=== PATIENT | female | born 1960 | race Caucasian/White ===

== ENCOUNTER 2019-07-22 06:54 | Day surgery (SDC) | payer OTHER, MEDICARE, MEDICAID ==
[~2019-07-22 06:54] MED LIST: CEFAZOLIN SODIUM 2 GM in DEXTROSE 5%-WATER 100 ML IV PRN
[2019-07-22 08:32] LABS: HEMATOCRIT 43.5 % (36.0-47.0); HEMOGLOBIN 14.8 g/dL (12.0-15.5); MEAN CORPUSCULAR HEMOGLOBIN 31.3 pg (27.0-33.4); MEAN CORPUSCULAR HGB CONC 34.1 g/dL (32.0-36.0); MEAN CORPUSCULAR VOLUME 92 fl (80-97); PLATELET COUNT 384 10^3/uL (150-450); RED BLOOD COUNT 4.74 10^6/uL (3.72-5.28); RED CELL DISTRIBUTION WIDTH 14.2 % (11.5-14.0); WHITE BLOOD COUNT 12.2 10^3/uL (4.0-10.5)
--- NOTE | 2019-07-22 08:51 | RADIOLOGY REPORT (SQ) ---
EXAM DESCRIPTION: CHEST SINGLE VIEW COMPLETED DATE/TIME: 07/22/2019 8:15 am REASON FOR STUDY: preop COMPARISON: None. EXAM PARAMETERS: NUMBER OF VIEWS: One view. TECHNIQUE: An AP view of the chest was obtained. RADIATION DOSE: NA LIMITATIONS: None. FINDINGS: LUNGS AND PLEURA: No consolidation, pleural effusion or pneumothorax. MEDIASTINUM AND HILAR STRUCTURES: No mediastinal or hilar contour abnormality. HEART AND VASCULAR STRUCTURES: The cardiac silhouette and pulmonary vasculature are within normal milner its. BONES: Left shoulder arthroplasty hardware. HARDWARE: None in the chest. OTHER: No other finding. IMPRESSION: No acute cardiopulmonary process. TECHNICAL DOCUMENTATION: JOB ID: [id number] [email or web address]- All Rights Reserved Reading location - IP/workstation name: [email or web address]
[2019-07-22] MEDS ORDERED: MIDAZOLAM 2 MG/2 ML INJ ONE (08:53)
[2019-07-22 09:03] LABS: ANION GAP 7 (5-19); BLOOD UREA NITROGEN 7 mg/dL (7-20); CALCIUM 9.2 mg/dL (8.4-10.2); CARBON DIOXIDE 24 mmol/L (22-30); CHLORIDE 107 mmol/L (98-107); GLUCOSE 90 mg/dL (75-110); POTASSIUM 4.5 mmol/L (3.6-5.0)
[2019-07-22] MEDS ORDERED: PROPOFOL INJ 200 MG/20 ML VIAL IV ONE (09:12)
[2019-07-22] MEDS ORDERED: BUPIVACAINE INJ/PF LIPOSOME/PF 266 MG/20 ML SDV ONE (09:13)
[2019-07-22] MEDS ORDERED: PROMETHAZINE HCL INJ 25 MG/1 ML VIAL IV PRN (09:40)
[2019-07-22] MEDS ORDERED: DIPHENHYDRAMINE HCL 50 MG/ML VIAL IV PRN (09:40)
[2019-07-22] MEDS ORDERED: OXYCODONE-ACETAMINOPHEN 5-325 MG TABLET PO PRN ×3 (09:40→14:20)
[2019-07-22] MEDS ORDERED: MORPHINE SULFATE 10 MG/ML INJ IV PRN (09:40)
[2019-07-22] MEDS ORDERED: MEPERIDINE HCL/PF INJ 25 MG/1 ML DISP.SYRIN IV PRN (09:40)
[2019-07-22] MEDS ORDERED: FENTANYL CITRATE INJ/PF 100 MCG/2 ML AMPUL IV PRN (09:40)
[2019-07-22] MEDS ORDERED: BUPIVACAINE INJ/PF LIPOSOME/PF 266 MG/20 ML SDV INJ ONE (09:44)
--- NOTE | 2019-07-22 10:41 | Discharge Summary ---
Discharge Summary (SDC) - Discharge Final Diagnosis: Posttraumatic right ankle arthritis Date of Surgery: 07/22/19 Discharge Date: 07/22/19 Condition: Good Treatment or Instructions: Touchdown weightbearing restriction on the right lower extremity. Leave the splint in place until you return to the office. Please do not immerse this in water. Discharge Diet: Regular Respiratory Treatments at Home: Deep Breathing/Coughing Discharge Activity: Balance Activity w/Rest, No Driving, No tub bath Home Care Assistance: None Needed Report the Following to Your Physician Immediately: Shortness of Breath, Fever over 101 Degrees, Drainage-Foul Smelling
--- NOTE | 2019-07-22 10:44 | Operative Report ---
Operative Report DATE OF SURGERY: 07/22/19 PREOPERATIVE DIAGNOSIS: Posttraumatic right ankle arthritis OPERATION: Right ankle arthrodesis. Hardware removal SURGEON: JATINDER THOMAS ANESTHESIA: Spinal TISSUE REMOVED OR ALTERED: Cultures to microbiology. Hardware to CSS ESTIMATED BLOOD LOSS: Minimal PROCEDURE: With the patient supine and operative table the right lower extremities prepped and draped sterile fashion. Limb is elevated for exsanguination tourniquet inflated to 250 torr. Patient has had previous medial and lateral incisions and these were avoided. A new incision made anteriorly over the anterior tibial and then. Further passage through the tendon sheath to avoid the neurovascular structures ensues. The underlying tibiotalar joint and dorsal aspect of the talus is exposed. There are 4 stainless steel screws in the joint that are removed through the joint and an additional screw in the neck of the talus which was removed uneventfully. The surface of the talus was resected using an oscillating saw. Likewise the articular surface of the tibia is removed using an oscillating saw. This is done in a fashion to avoid the existing tibial hardware and avoid its removal because of unnecessary soft tissue dissection. The tibiotalar joint is reduced and held in place with 3 Steinmann pins. Its position is assessed clinically as slightly valgus hindfoot and neutral plantar and dorsiflexion. This was confirmed radiographically in 2 planes. Subsequent Arthrex anterior tibiotalar fusion plate is placed and secured with 3 screws into the dorsum of the talus. Is then compressed onto the tibia and the remainder of the screw holes are filled with locking screws. The ultimate result is assessed fluoroscopically and felt to be adequate. Again it demonstrates a slightly valgus hindfoot with a neutral plantar and dorsiflexion axis. The tourniquet is deflated. Hemostasis obtained with electrocautery. The wound is irrigated with bulb lavage. Ventura closure is noted Vicryl followed by nylon. A sterile compressive dressing followed by posterior plaster splint are applied. The patient is returned to PACU in satisfactory condition.
[2019-07-22 15:31] VITALS: BP 145/95
--- NOTE | 2019-07-22 16:17 | RADIOLOGY REPORT (SQ) ---
EXAM DESCRIPTION: ANKLE RIGHT AP/LATERAL; NO CHG FLUORO COMPLETED DATE/TIME: 07/22/2019 4:03 pm; 07/22/2019 4:01 pm REASON FOR STUDY: ORIF/FUSION RIGHT ANKLE ASST WITH FLUORO IN OR M25.571 PAIN IN RIGHT ANKLE AND KIESHA INTS OF RIGHT FOOT COMPARISON: 06/29/2019. FLUOROSCOPY TIME: 0.4 minutes. 3 images saved to PACS. TECHNIQUE: Intra-operative images acquired during surgical procedure to evaluate progress. NUMBER OF IMAGES: 3 images. LIMITATIONS: None. FINDINGS: Images of the ankle acquired during the procedure. IMPRESSION: IMAGE(S) OBTAINED DURING PROCEDURE. COMMENT: Quality ID [id number]: Final reports for procedures using fluoroscopy that document radiation exp osure indices, or exposure time and number of fluorographic images (if radiation exposure indices are not available) Please consult full operative report of the attending physician for description of the procedure. TECHNICAL DOCUMENTATION: JOB ID: [id number] [employer]- All Rights Reserved Reading location - IP/workstation name: [email or web address]
--- NOTE | 2019-07-22 16:17 | RADIOLOGY REPORT (SQ) ---
EXAM DESCRIPTION: ANKLE RIGHT AP/LATERAL; NO CHG FLUORO COMPLETED DATE/TIME: 07/22/2019 4:03 pm; 07/22/2019 4:01 pm REASON FOR STUDY: ORIF/FUSION RIGHT ANKLE ASST WITH FLUORO IN OR M25.571 PAIN IN RIGHT ANKLE AND KIESHA INTS OF RIGHT FOOT COMPARISON: 06/29/2019. FLUOROSCOPY TIME: 0.4 minutes. 3 images saved to PACS. TECHNIQUE: Intra-operative images acquired during surgical procedure to evaluate progress. NUMBER OF IMAGES: 3 images. LIMITATIONS: None. FINDINGS: Images of the ankle acquired during the procedure. IMPRESSION: IMAGE(S) OBTAINED DURING PROCEDURE. COMMENT: Quality ID [id number]: Final reports for procedures using fluoroscopy that document radiation exp osure indices, or exposure time and number of fluorographic images (if radiation exposure indices are not available) Please consult full operative report of the attending physician for description of the procedure. TECHNICAL DOCUMENTATION: JOB ID: [id number] [employer]- All Rights Reserved Reading location - IP/workstation name: [email or web address]
--- NOTE | 2019-07-22 18:33 | EKG REPORT ---
SEVERITY:- ABNORMAL ECG - SINUS RHYTHM CONSIDER ANTEROSEPTAL INFARCT : Confirmed by: Aubrie Ocampo MD 22-Jul-2019 18:33:18
== END 2019-07-22 15:37 | disposition home or self-care (01) ==
LOC: OROUT 06:54 → 4W 13:13 → OROUT 15:37
PROVIDERS: ATTEND Orthopaedic Surgery
DX: M25.571 Pain in right ankle and joints of right foot (principal); Z79.899 Other long term (current) drug therapy; E78.00 Pure hypercholesterolemia, unspecified; M19.171 Post-traumatic osteoarthritis, right ankle and foot; I25.10 Atherosclerotic heart disease of native coronary artery without angina pectoris; I10 Essential (primary) hypertension; Z85.828 Personal history of other malignant neoplasm of skin; Z88.8 Allergy status to other drugs, medicaments and biological substances; F17.210 Nicotine dependence, cigarettes, uncomplicated
CPT/HCPCS: 36415; 87070; 87205; 85027; 80048; 73600; 71045; 93005; 93010; 01480; 20680; 27871; J2250; J0690; J7060; J2704; C9290